=== PATIENT | female | born 2000 | race Two or more races ===

== ENCOUNTER 2025-04-01 02:57 | Inpatient (IN) | payer MEDICAID, SELFPAY ==
[2025-04-01] VITALS (47 sets, daily range): BP systolic 101–142; BP diastolic 53–95; PULSE 41–118; RESP 16–100; TEMP 36.6–36.9; O2SAT 91–99; BMI 35.1
[2025-04-01] MEDS: RINGERS LACTATED 1000 ML 1,000 ML 100 ML IV (03:46)
[2025-04-01 04:01] LABS: Basophils # (Auto) 0.0 Thou/mm3 (0.0-0.2); Basophils % (Auto) 0 % (0-2.5); Eosinophils # (Auto) 0.1 Thou/mm3 (0.0-0.5); Eosinophils % (Auto) 1 % (0-10); Hematocrit 31.2 % (36.0-46.0); Hemoglobin 10.3 g/dL (12.0-16.0); Immature Granulocytes Auto 0.04 Thou/mm3 (0.00-0.00); Lymphocytes # (Auto) 1.9 Thou/mm3 (1.0-4.8); Lymphocytes % (Auto) 21 % (10-50); Mean Corpuscular HGB Conc 33.0 g/dl (31.0-37.0); Mean Corpuscular Hemoglobin 24.6 pg (25.0-35.0); Mean Corpuscular Volume 75 fL (80-100); Monocytes # (Auto) 0.9 Thou/mm3 (0.0-0.8); Monocytes % (Auto) 10 % (0-12); Neutrophils # (Auto) 6.3 Thou/mm3 (1.8-7.7); Neutrophils % (Auto) 68 % (37-80); Nucleated Red Blood Cell # 0.00 Thou/mm3 (0.00-0.00); Nucleated Red Blood Cell % 0 /100 WBC (0); Platelet Count 300 Thou/mm3 (140-440); RDW Standard Deviation 42.4 fL (36.4-46.3); Red Blood Count 4.19 Miln/mm3 (4.00-5.20); White Blood Count 9.2 Thou/mm3 (3.6-11.0)
[2025-04-01 04:37] LABS: Syphilis Nonreactive (Nonreactive)
[2025-04-01] MEDS: fentaNYL CIT INJ 50 mCg/ML AMP 2ML 100 MCG IVP (06:02)
[2025-04-01] MEDS: OXYTOCIN INJ 10 UNIT/ML VIAL IM (08:13)
[2025-04-01] MEDS: LIDOCAINE HCL 1% 20 ML VIAL INFL (08:13)
[2025-04-01] MEDS: TRANEXAMIC ACID 1,000 MG IVPB 1,000 MG/100 ML BAG 200 MG IV (08:14)
[2025-04-01] MEDS: BENZO/LANO/ALOE (Dermoplast) 60 GM CAN 1 SPRAY TOP (08:17)
[2025-04-01] MEDS: OXYTOCIN in NS 20 units 20 UNIT/1,000 ML BAG 125 UNIT IV (08:19)
[2025-04-01] MEDS: IBUPROFEN TAB 400 MG TABLET 800 MG PO ×2 (08:21→15:52)
--- NOTE | 2025-04-01 08:37 | ESHP_ITS ---
Documentation for date of: 04/01/25 OB Labor/Induct. HPI History of Present Illness Chief complaint: labor : 2 Para: 1 Term pregnancies: 0 pregnancies: 1 Living children: 1 History of Abortions: Spontaneous and Elective: 0 History of Vaginal deliveries: 1 History of sections: No History of : No Date of last menstrual period: 07/06/24 BARBER: 04/13/25 Gestational Age (weeks): 38 Gestational Age (days): 2 Gestational age based on last menstrual period: 38 History of present illness: 24-year-old 2 para 1 admit to labor and delivery with contractions since 9 PM. Last period July 06, 2024. EDC 04/13/2025. Patient is been followed at [facility] for care. Her first visit was around 5 months. She reports that she has had an uncomplicated with normal labs. Patient is A+, antibody screen negative, RPR nonreactive, rubella immune, hepatitis B negative, hep C negative, HIV negative, GC and Chlamydia were negative. GBS negative. She reports she had a normal 1 hour GTT patient has a history of gastric pieces with the first and a delivery and baby is doing well. Baby is doing well now History of Present Dating criteria: LMP confirmed by 1st trimester US Adequate Care: Yes (PER PT.) Ultrasounds: normal 1st trimester US and normal mid trimester US Obstetrical complications: none Medical complications: none Labs Labs: Positive: Rubella Titre, Negative: RPR, Hepatitis B, HIV, Chlamydia, Gonorrhea and Group Beta Strep and Unknown: Herpes Type 1, Herpes Type 2 and Covid-19 Review of Systems Review of Systems Systems Reviewed: All systems reviewed, normal except as documented Past Medical History Surgical History SURGICAL: Negative Section Meds Home Medications and Allergies Home Medications ?Medication ?Instructions ?Recorded ?Confirmed ?Type ferrous sulfate 325 mg (65 mg 325 mg PO QDAY 07/13/23 04/01/25 History iron) tablet (iron) vits no.124-ferrous fum 1 tab PO QDAY 3 04/01/25 History 27 mg iron-folic acid 800 mcg tablet ( Vitamin) Allergies Allergy/AdvReac Type Severity Reaction Status Date / Time No Known Allergies Allergy Verified 04/01/25 03:34 OB Exam Physical Exam Vital signs: Temp Pulse Resp BP Pulse Ox O2 Del Method 97.8 F 100 22 H 142/70 H 97 Room Air 04/01/25 06:55 04/01/25 08:28 04/01/25 06:55 04/01/25 08:28 04/01/25 05:07 04/01/25 06:55 Narrative: Lungs clear no wheezes. Gynecoid pelvis. Estimated weight 7 and half pounds. Normal heart rate and rhythm. Vaginal exam on admission was 90%, 4, - 1. Vertex. Bag water intact. heart rate category 1 with accelerations and moderate variability and regular contractions Detailed Labor and Delivery Exam Dilation (cm): 4 Effacement (%): 90 Cervix position: anterior station: -2 Consistency: soft Presentation: Vertex Cervical ripeness score: 8 Membranes: intact Baseline heart rate: 145 monitor accelerations: 15x15 monitor decelerations: None detention variability: Moderate (11-25) Contraction frequency (min): 3-4 Contraction duration (sec): 40 Tachysystole: No Contraction intensity: Moderate OB Results Labs 04/01/25 03:40 Labs: Short CBC 04/01/25 Range/Units 03:40 WBC 9.2 (3.6-11.0) Thou/mm3 Hgb 10.3 L (12.0-16.0) g/dL Hct 31.2 L (36.0-46.0) % Plt Count 300 (140-440) Thou/mm3 OB Assessment & Plan Assessment and Plan (1) Normal labor and delivery: Status: Acute Additional Plan Induction method: none Plan: anticipate NVD and consult MD alvarez
--- NOTE | 2025-04-01 08:45 | PD.LDDELS ---
Data (Hyman) Data Hx Section: No : 2 Term: 0 : 1 Livin Abortions: Spontaneous & Theraputic: 0 Delivery Data (Hyman) Labor Data Initiation of labor: Spontaneous Induction/Augmentation Agent: None and Artificial ROM ROM date: 04/01/25 ROM time: 07:36 Amniotic membrane rupture type: Artificial Amniotic fluid description: Clear Delivery Data EDC: 04/13/25 EDC calculated by:: LMP/early US confirmation Date of arrival to unit: 04/01/25 Time of arrival to unit: 02:57 Onset of labor date: 04/01/25 Onset of labor time: 03:00 Complete dilation date: 04/01/25 Complete dilation time: 07:35 delivery date: 04/01/25 [place] delivery time: 07:51 Placenta delivery date: 04/01/25 Placenta delivery time: 07:53 Stage 1 total time: Labor - Stage 1 Duration 4 hours and 35 minutes Delivered by: Elena Simmons Delivery nurse: Sergio Barone RN [place] nurse: OKREY Ospina Cutting Machine Operator Helper at delivery: Yes (Dr. Franco) Support person(s) at delivery: FOB Other staff at delivery: manager partKOREY Jones Delivery Method Delivery method: Normal Vaginal Delivery Presentation: Vertex Anesthesia Type Anesthesia Type: Local Delivery Room Medications Delivery room medications given: fentanyl Delivery room medications: Lidocaine (local), Pitocin 10 u IM, Pitocin 20 u IV and Cytotec 800 [place] Placenta Placenta delivery description: Spontaneous Cord blood sent to lab: Yes cord blood collection: Cord Blood Type Episiotomy Episiotomy description: None Lacerations #1: Perineal: 2nd degree Perineal repair Sutures used for repair: 3.0 Vicryl EBL Estimated blood loss (ml): 400 Umbilical Cord cord description: 3 Vessels and Nuchal Cord Data (Hyman) Data order: 1 's gender: Male Identification band number: [id number] weight (gms): 3585 g Weight (pounds): 7 lbs and 14.5 ozs 1 minute: 9 5 minutes: 9
[2025-04-01] MEDS: ACETAMINOPHEN 325 MG TABLET 650 MG PO (12:44)
[2025-04-01 15:09] LABS: Basophils # (Auto) 0.0 Thou/mm3 (0.0-0.2); Basophils % (Auto) 0 % (0-2.5); Eosinophils # (Auto) 0.0 Thou/mm3 (0.0-0.5); Eosinophils % (Auto) 0 % (0-10); Hematocrit 28.9 % (36.0-46.0); Hemoglobin 9.5 g/dL (12.0-16.0); Immature Granulocytes Auto 0.04 Thou/mm3 (0.00-0.00); Lymphocytes # (Auto) 1.5 Thou/mm3 (1.0-4.8); Lymphocytes % (Auto) 11 % (10-50); Mean Corpuscular HGB Conc 32.9 g/dl (31.0-37.0); Mean Corpuscular Hemoglobin 25.2 pg (25.0-35.0); Mean Corpuscular Volume 77 fL (80-100); Monocytes # (Auto) 0.8 Thou/mm3 (0.0-0.8); Monocytes % (Auto) 6 % (0-12); Neutrophils # (Auto) 10.8 Thou/mm3 (1.8-7.7); Neutrophils % (Auto) 82 % (37-80); Nucleated Red Blood Cell # 0.00 Thou/mm3 (0.00-0.00); Nucleated Red Blood Cell % 0 /100 WBC (0); Platelet Count 295 Thou/mm3 (140-440); RDW Standard Deviation 42.8 fL (36.4-46.3); Red Blood Count 3.77 Miln/mm3 (4.00-5.20); White Blood Count 13.2 Thou/mm3 (3.6-11.0)
[2025-04-01] MEDS: DOCUSATE SOD 100 MG CAPSULE PO (20:24)
--- NOTE | 2025-04-02 02:58 | PD.LDPPPRG ---
Subjective Subjective Interval history: No complaints of pain. No dizziness. Bonding and breast-feeding. Complains of constipation Exam Vital Signs Temp Pulse Resp BP Pulse Ox O2 Del Method 98.0 F 88 18 128/86 H 97 Room Air 04/01/25 23:55 04/01/25 23:55 04/01/25 23:55 04/01/25 23:55 04/01/25 23:55 04/01/25 23:55 Narrative Exam Vital signs stable afebrile. Pressure soft. Fundus firm below the umbilicus. Perineum intact no swelling. Patient had a small vaginal tear that was repaired. DTRs 2+. Negative Homans' sign. Small lochia. Objective Labs 04/01/25 14:55 Labs: Laboratory Results - last 24 hr 04/01/25 04/01/25 03:40 14:55 WBC 9.2 13.2 H D RBC 4.19 3.77 L Hgb 10.3 L 9.5 L Hct 31.2 L 28.9 L MCV 75 L 77 L MCH 24.6 L 25.2 MCHC 33.0 32.9 RDW Std Deviation 42.4 42.8 Plt Count 300 295 Neut % (Auto) 68 82 H Lymph % (Auto) 21 11 [place] % (Auto) 10 6 Eos % (Auto) 1 0 Baso % (Auto) 0 0 Neut # (Auto) 6.3 10.8 H Lymph # (Auto) 1.9 1.5 [place] # (Auto) 0.9 H 0.8 Eos # (Auto) 0.1 0.0 Baso # (Auto) 0.0 0.0 Immature Gran # (Auto) 0.04 H 0.04 H Absolute Nucleated RBC 0.00 0.00 Immature Gran % 0 0 Nucleated RBC % 0 0 Syphilis Serology Nonreactive Blood Type A Positive Antibody Screen NEGATIVE Blood Bank Wristband ID Yes Assessment & Plan Problem List (1) Normal labor and delivery: Status: Acute Assessment Comment Assessment comment: 24 hr pp Plan Comment Plan Comment: Discharge home with baby. Continue vitamins and iron. Tylenol ibuprofen for pain. Discussed danger signs and symptoms. And ER precautions. And I discussed signs and symptoms of infection with patient. Increase fluids. Discussed latching. Discussed comfort measures for constipation. Colace 100 twice daily x 7 days Time Spent With Patient Time: Total time spent is greater than 50% in coordination of care (as documented) at patient's floor/unit and/or counseling patient:
--- NOTE | 2025-04-02 03:00 | ESDS_ITS ---
DS: Providers Provider Date of admission: 04/01/25 03:29 Primary care physician: Physician No Primary/Family Admitting Provider: Barbie Guzman MD Attending Provider on Admission: Elena Simmons CNM Consults: 04/01/25 10:02 Referral Routine Comment: Attending Provider on DC: Elena Simmons CNM Discharging Provider: Elena Simmons CNM DS: Diagnosis Problem List Completed Was Problem List Reviewed/Reconciled?: Yes Summary/Hosp Course Brief History: 24-year-old 2 para 1 admit to labor and delivery with contractions since 9 PM. Last period July 06, 2024. EDC 04/13/2025. Patient is been followed at [facility] for care. Her first visit was around 5 months. She reports that she has had an uncomplicated with normal labs. Patient is A+, antibody screen negative, RPR nonreactive, rubella immune, hepatitis B negative, hep C negative, HIV negative, GC and Chlamydia were negative. GBS negative. She reports she had a normal 1 hour GTT patient has a history of gastric pieces with the first and a delivery and baby is doing well. Baby is doing well now Peripartum Data Delivery Method: Normal Vaginal Delivery Episiotomy Description: None Laceration Description: yes (small 2nd) complications: none Time Spent with Patient Time attestation: Total time spent providing and/or coordinating discharge services: Exam Vital Signs Temp Pulse Resp BP Pulse Ox O2 Del Method 98.0 F 88 18 128/86 H 97 Room Air 04/01/25 23:55 04/01/25 23:55 04/01/25 23:55 04/01/25 23:55 04/01/25 23:55 04/01/25 23:55 Discharge Plan Plan Patient Disposition: HOME (Self Care) Patient condition on transfer: Stable Prescriptions/Referrals Prescriptions/Med Rec: New docusate sodium [Colace] 100 mg capsule 100 mg PO BID Qty: 20 0RF ibuprofen [Motrin IB] 200 mg capsule 200 mg PO Q6H PRN (Reason: pain) Qty: 60 0RF No Action ferrous sulfate [iron] 325 mg (65 mg iron) Tablet 325 mg PO QDAY Vitamin 27 mg iron- 800 mcg Tablet 1 tab PO QDAY Referrals: No Primary/Family,Physician [Primary Care Provider] - Patient/Caregiver Discharge Instructions Discharge Activity: resume usual activities Print Language: Icelandic Activity Restrictions/Additional Instructions: Discharge home with baby. Continue vitamins and iron. I gave ibuprofen 200 every 6 to 8 hours as needed discomfort. Colace 100 p.o. twice daily x 7 days. Increase fluids and roughage. Discussed sitz bath's with patient. I discussed ER precautions and signs symptoms of infection with patient discussed danger signs and symptoms. Patient will follow-up with her provider in a week. Stand Alone Forms: Isa Award Info., Patient Portal Info Letter Discharge Order Discharge Orders: Discharge (Routine); Ordered 04/02/25 Ordered By: Elena Simmons Planned Discharge Date 04/02/25
[2025-04-02 04:10] VITALS: BP 111/66; PULSE 87; RESP 17; TEMP 36.5; O2SAT 96
[2025-04-02] MEDS: DOCUSATE SOD 100 MG CAPSULE PO (07:52)
[2025-04-02 08:00] VITALS: BP 94/67; PULSE 83; RESP 15; TEMP 36.8; O2SAT 97
== END 2025-04-02 11:50 | disposition home or self-care (01) | DRG 560 ==
LOC: S4SX 08:36 → S4NX 12:16
PROVIDERS: Admitting Provider Obstetrics & Gynecology; Visit Provider Advanced Practice Midwife
DX: O69.81X0 Labor and delivery complicated by cord around neck, without compression, not applicable or unspecified (principal); Z37.0 Single live birth; Z3A.38 38 weeks gestation of pregnancy; O70.1 Second degree perineal laceration during delivery; O99.63 Diseases of the digestive system complicating the puerperium; K59.00 Constipation, unspecified
CPT/HCPCS: 36415; 59025; 59409; 85025; 86780; 86850; 86900; 86901; 94762; J2590; J2795; J3010; J3490; J7120; A9270